=== PATIENT | male | born 1955 | race Hispanic/Latino ===

== ENCOUNTER 2023-06-24 05:05 | Observation (INO) | payer OTHER, MEDICARE ==
[2023-06-19 12:03] LABS: BASOPHILS # (AUTO) 0.05 K/uL (0.00-0.20); BASOPHILS % (AUTO) 0.5 % (0.0-5.0); EOSINOPHILS # (AUTO) 0.06 K/uL (0.00-0.70); EOSINOPHILS % (AUTO) 0.6 % (0.0-8.0); HEMATOCRIT 40.7 % (42-54); IMMATURE GRANULOCYTE ABSOLUTE 0.05 K/uL (0-1); LYMPHOCYTES # (AUTO) 1.2 K/uL (1.0-4.8); LYMPHOCYTES % (AUTO) 12.3 % (21.0-51.0); MEAN CORPUSCULAR HEMOGLOBIN 31.3 pg (27.0-33.0); MEAN CORPUSCULAR HGB CONC 34.4 g/dL (32.0-36.0); MEAN CORPUSCULAR VOLUME 91.1 fL (79-99); MONOCYTES % (AUTO) 10.2 % (3.0-13.0); NEUTROPHILS # (AUTO) 7.5 K/uL (1.8-7.7); NEUTROPHILS % (AUTO) 75.9 % (40.0-77.0); PLATELET COUNT (AUTO) 314 K/uL (130-400); RED BLOOD CELL COUNT(AUTO) 4.47 MIL/uL (4.50-6.20); RED CELL DISTRIBUTION WIDTH 12.1 % (11.0-15.5); WHITE BLOOD COUNT (AUTO) 9.9 K/uL (4.8-10.8)
[2023-06-19 12:20] LABS: INR <= 0.93 (0.85-1.15); PROTHROMBIN TIME 10.8 SEC (9.6-11.6)
[2023-06-19 12:22] LABS: PARTIAL THROMBOPLASTIN TIME 27.1 SEC (26.3-35.5)
[2023-06-19 12:29] VITALS: BP 156/68; PULSE 71; RESP 18
[2023-06-19 12:29] LABS: CREATININE 0.7 mg/dL (0.5-1.5); POTASSIUM 4.2 mmol/L (3.5-5.1)
[~2023-06-24] VITALS: Ht 167.6 cm; Wt 99.0 kg
[2023-06-24] VITALS (25 sets, daily range): BP systolic 108–161; BP diastolic 52–73; PULSE 52–94; RESP 14–19; O2SAT 96
[~2023-06-24 05:05] MED LIST: AEC81 PO; AMLO-257 PO; ATOR40TA71 PO; DONE5TAB33 PO; GLIP1TAB4 PO; HYDR25TA PO; ISOS60TA77 PO; LOSA100T59 PO; MELO-106 PO
[2023-06-24] MEDS ORDERED: 0.9%NACL 48.45 ML, ROPIVACAINE 0.5% 49.25ML, EPINEPH 0.5MG KETOROLAC 30MG,CLONIDINE 80MCG IV PRN (06:00)
[2023-06-24 06:02] LABS: CREATININE 0.7 mg/dL (0.5-1.5); POTASSIUM 4.3 mmol/L (3.5-5.1)
[2023-06-24] MEDS: 0.9%NACL 1000ML 1,000 ML IV ONE (07:11)
[2023-06-24] MEDS: CEFAZOLIN SODIUM 2 GM VIAL ONE (07:12)
[2023-06-24] MEDS ORDERED: MIDAZOLAM HCL 1 MG/ML 2ML VIAL ONE (08:27)
[2023-06-24] MEDS ORDERED: FENTANYL CITRATE PF 50 MCG/1 ML 2ML VIAL ONE (08:27)
[2023-06-24] MEDS ORDERED: PROPOFOL 10 MG/ML 20ML VIAL IV ONE ×4 (08:37→09:31)
[2023-06-24] MEDS ORDERED: TRANEXAMIC ACID 1000MG/10ML ONE (08:43)
[2023-06-24] MEDS ORDERED: EPHEDRINE SULFATE 50 MG/ML AMPULE ONE (08:45)
[2023-06-24] MEDS: CEFAZOLIN SODIUM 2 GM VIAL IVPB ONE (08:47)
[2023-06-24] MEDS ORDERED: GENTAMICIN SULFATE 80 MG/2 ML VIAL ONE (08:49)
[2023-06-24] MEDS ORDERED: CEFAZOLIN SODIUM 1 GM VIAL ONE (08:49)
[2023-06-24] MEDS: TRANEXAMIC ACID 1000MG/10ML IV ONE (08:51)
[2023-06-24] MEDS ORDERED: PROPOFOL 1000 MG/100 ML 100 ML IV ONE (10:03)
[2023-06-24] MEDS: 0.9%NACL 1000ML 1,000 ML IV SCH (13:30)
[2023-06-24] MEDS ORDERED: DiphenhydrAMINE HCL 50 MG/ML VIAL IM PRN (13:30)
[2023-06-24] MEDS ORDERED: ZINC OXIDE OINT 30GM TUBE TP PRN (13:30)
[2023-06-24] MEDS ORDERED: BENZOCAINE/MENTH/CETYLPYRD CL 1 EACH LOZENGE MM PRN (13:30)
[2023-06-24] MEDS ORDERED: DIPHENHYDRAMINE HCL 25 MG CAPSULE PO PRN (13:30)
[2023-06-24] MEDS ORDERED: DIPHENOXYLATE HCL/ATROPINE 2.5/0.025 MG TAB PO PRN (13:30)
[2023-06-24] MEDS ORDERED: MAG/ALUM/SIMETH 30 ML UDCUP PO PRN (13:30)
[2023-06-24] MEDS ORDERED: LACTULOSE 20 GM/30 ML UDCUP PO PRN (13:30)
[2023-06-24] MEDS ORDERED: ONDANSETRON 4MG INJ IVP PRN (13:30)
[2023-06-24] MEDS ORDERED: ACETAMINOPHEN 325 MG TAB PO PRN ×2 (13:30)
[2023-06-24] MEDS ORDERED: COMPOUND IV REFRIGERATED 1 EACH IVSOLN MISC PRN (15:30)
[2023-06-24] MEDS ORDERED: GLUCAGON 1MG KIT 1 MG ML IM PRN (15:30)
[2023-06-24] MEDS ORDERED: DEXTROSE 50%-WATER 50 ML DISP.SYRIN IV PRN (15:30)
[2023-06-24] MEDS: INSULIN HUMULIN R 100 UNIT/ML 3ML SQ SCH (16:30)
[2023-06-24] MEDS ORDERED: CEFAZOLIN SODIUM 2 GM VIAL IVPB SCH (17:00)
[2023-06-24] MEDS: CEFAZOLIN SODIUM 3 GM in DEXTROSE 5%-WATER 100 ML IVPB SCH (18:17)
[2023-06-24] MEDS: HYDROMORPH /0.9% NACL/PF PCA 50 ML IV PRN (18:18)
[2023-06-24] MEDS: DONEPEZIL HCL 5 MG TAB PO SCH (21:22)
[2023-06-25 00:13] VITALS: BP 110/54; PULSE 80; RESP 18
[2023-06-25] MEDS: TRAMADOL HCL 50 MG TABLET PO PRN (04:01)
[2023-06-25 04:32] VITALS: BP 129/61; PULSE 67; RESP 18
[2023-06-25 04:48] LABS: MEAN CORPUSCULAR HEMOGLOBIN 31.8 pg (27.0-33.0); MEAN CORPUSCULAR HGB CONC 34.4 g/dL (32.0-36.0); MEAN CORPUSCULAR VOLUME 92.5 fL (79-99); RED BLOOD CELL COUNT(AUTO) 3.46 MIL/uL (4.50-6.20); RED CELL DISTRIBUTION WIDTH 12.5 % (11.0-15.5); WHITE BLOOD COUNT (AUTO) 10.6 K/uL (4.8-10.8)
[2023-06-25 04:55] LABS: CREATININE 0.7 mg/dL (0.5-1.5); POTASSIUM 3.8 mmol/L (3.5-5.1)
[2023-06-25 05:01] LABS: INR 0.98 (0.85-1.15); PROTHROMBIN TIME 11.4 SEC (9.6-11.6)
[2023-06-25 05:02] LABS: PARTIAL THROMBOPLASTIN TIME 28.3 SEC (26.3-35.5)
[2023-06-25 08:00] VITALS: BP 139/65; PULSE 72; RESP 18
[2023-06-25] MEDS: LOSARTAN 100 MG TABLET PO SCH (08:58)
[2023-06-25] MEDS: ASPIRIN 81 MG EC TAB PO SCH (08:58)
[2023-06-25] MEDS: HYDROCHLOROTHIAZIDE 25 MG TABLET PO SCH (08:58)
[2023-06-25] MEDS: RIVAROXABAN 10 MG TABLET PO SCH (08:58)
[2023-06-25] MEDS: ISOSORBIDE MONO 60MG SR TAB PO SCH (08:58)
[2023-06-25] MEDS: ATORVASTATIN 40 MG TABLET PO SCH (08:58)
[2023-06-25] MEDS: AMLODIPINE 5 MG TAB PO SCH (08:58)
[2023-06-25] MEDS ORDERED: HOME MEDICATION 1 EACH PO SCH (09:00)
[2023-06-25 09:15] VITALS: O2SAT 98
[2023-06-25 12:00] VITALS: BP 123/62; PULSE 77; RESP 18
== END 2023-06-25 18:52 | disposition home health service (06) ==
LOC: DAH 05:05 → DAHIP 05:06 → 4CH 12:15
PROVIDERS: ADMIT Orthopaedic Surgery; ATTEND Orthopaedic Surgery
DX: M17.11 Unilateral primary osteoarthritis, right knee (principal); I10 Essential (primary) hypertension; E78.5 Hyperlipidemia, unspecified; E11.42 Type 2 diabetes mellitus with diabetic polyneuropathy; F32.A Depression, unspecified; G47.00 Insomnia, unspecified; Z98.1 Arthrodesis status; Z86.73 Personal history of transient ischemic attack (TIA), and cerebral infarction without residual deficits; Z86.2 Personal history of diseases of the blood and blood-forming organs and certain disorders involving the immune mechanism; Z79.82 Long term (current) use of aspirin
CPT/HCPCS: 80048 ×3; 85025; 85610 ×2; 85730 ×2; 36415 ×3; 87641; 96372 ×2; 27447; 96365; 96366 ×4; 96368; 82948 ×6; 97161; 97012; 97116 ×3; 97530 ×7; 93005; 85027; A6260; J1815; G0378 ×26; A4600 ×5; A4510; A4663; J7120; A4215 ×2; A4649 ×4; J3010; J0690 ×4; J3490 ×3; J7030 ×2; J1580; J2250; J2704 ×5; J7060; A6223; A4930; C1763 ×2; C1776; A5120; A4223; A4222; A4221; A6450